=== PATIENT | female | born 1930 | race Caucasian/White ===

== ENCOUNTER 2018-04-25 02:57 | Inpatient (IN) ==
[2018-04-25 03:34] LABS: ABG Base Excess -4.1 mmol/L (-2-2); ABG PCO2 34 mmHg (38-42); ABG PO2 71 mmHg (61-120)
[2018-04-25 04:10] LABS: Baso # (Auto) 0.1 th/mm3 (0.0-0.2); Baso % (Auto) 0.6 % (0.0-2.0); Eos # (Auto) 0.4 th/mm3 (0.0-0.4); Eos % (Auto) 4.2 % (0.0-4.0); Hematocrit 39.4 % (35.0-46.0); Hemoglobin 13.1 gm/dL (11.6-15.3); Lymph # (Auto) 1.5 th/mm3 (1.0-4.8); Lymph % (Auto) 14.5 % (9.0-44.0); Mean Corpuscular HGB Conc 33.2 % (32.0-36.0); Mean Corpuscular Hemoglobin 31.8 pg (27.0-34.0); Mean Corpuscular Volume 95.8 fL (80.0-100.0); Mean Platelet Volume 8.3 fL (7.0-11.0); Mono # (Auto) 0.7 th/mm3 (0.0-0.9); Mono % (Auto) 6.9 % (0.0-8.0); Neut # (Auto) 7.5 th/mm3 (1.8-7.7); Neut % (Auto) 73.8 % (16.0-70.0); Platelet Count 234 th/mm3 (150-450); Red Blood Count 4.11 mil/mm3 (4.00-5.30); Red Cell Distribution Width 13.8 % (11.6-17.2); White Blood Count 10.2 th/mm3 (4.0-11.0)
[2018-04-25 04:16] LABS: Activated Partial Thrombo Time 23.1 sec (24.3-30.1); Prothrombin Time 10.1 sec (9.8-11.6)
[2018-04-25 04:27] LABS: Alanine Aminotransferase 45 U/L (10-53); Albumin 3.2 g/dL (3.4-5.0); Anion Gap 10 meq/L (5-15); Aspartate Aminotransferase 59 U/L (15-37); Blood Urea Nitrogen 18 mg/dL (7-18); Calcium 8.2 mg/dL (8.5-10.1); Carbon Dioxide 21.6 meq/L (21.0-32.0); Chloride 111 meq/L (98-107); Glomerular Filtration Rate 57 mL/min (>89); Glucose,Random 184 mg/dL (74-106); Potassium 3.7 meq/L (3.5-5.1); Sodium 143 meq/L (136-145)
[2018-04-25 04:31] LABS: Alkaline Phosphatase 112 U/L (45-117); Total Protein 7.1 g/dL (6.4-8.2); Troponin I 0.06 ng/mL (0.02-0.05)
[2018-04-25] MEDS ORDERED: Bisacodyl 10 MG Supp RECTAL PRN (05:08)
[2018-04-25] MEDS ORDERED: Acetaminophen 325 MG Tablet PO PRN (05:08)
[2018-04-25] MEDS ORDERED: Morphine Inj 4 MG/ML Vial IV.PUSH PRN (05:09)
--- NOTE | 2018-04-25 05:18 | XR ---
EXAM DATE: 04/25/2018 4:55 AM EDT AGE/SEX: 87 years / Female INDICATIONS: Shortness of breath. CLINICAL DATA: This is the patient's initial encounter. Patient reports that signs and symptoms have been present for 1 day and indicates a pain score of 0/10. MEDICAL/SURGICAL HISTORY: None. CABG. COMPARISON: POI, XR CHEST PA AND LAT, 11/16/2015. . FINDINGS: The heart size is normal. There is mild increased density at the bases. There is also some focal dens ity at the superior lateral right upper lung. No effusion is seen. There is an anterior cervical fusi on plate present. CONCLUSION: Mild bibasilar and lateral right upper lung areas of consolidation or atelectasis. Electronically signed by: Federico Watson MD 04/25/2018 5:17 AM EDT
--- NOTE | 2018-04-25 05:20 | ED ---
HPI General Chief Complaint: Respiratory Symptoms Stated Complaint: SOB/Evac Time Seen by Provider: 04/25/18 03:11 Source: patient Mode of arrival: EMS Limitations: no limitations History of Present Illness The patient is an 87-year-old female with past medical history significant for hypertension, diabetes and hyperlipidemia presenting with complaint of sudden onset of shortness of breath and chest tightness 2 hours ago. Patient was asleep and woke up with the aforementioned symptoms. On arrival her blood pressure was 231/97 with a heart rate in the 120s and O2 saturation of 92%. She is not a smoker she denies any chest pain no nausea vomiting or diarrhea no diaphoresis. MD Complaint: shortness of breath Severity: severe Relieving factors: nothing Known history of: diabetes Associated symptoms: denies other symptoms Treatment prior to arrival: none Related Data Home oxygen amount: none Allergies Allergy/AdvReac Type Severity Reaction Status Date / Time penicillin G Allergy Severe Confusion Verified 04/25/18 03:40 Review of Systems ROS: all other systems reviewed are negative Cardiovascular Denies chest pain, Denies chest pain at rest, Reports rapid heart rate, Reports leg edema, Reports palpitations, Reports dyspnea and Reports dyspnea on exertion PMFSH History History Provided By: Patient, 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 Medical History Medical History HTN (hypertension) (Acute) Type 2 diabetes mellitus (Acute) Surgical History Surgical History Hx of cholecystectomy (Acute) Social History Social History Substance History: No History of Abuse Second Hand Smoke Exposure: No Smoking Status: Never smoker How Often Do You Have a Drink Containing Alcohol: Never Recent Travel in [facility] within the Last 8 Weeks: No Recent Out of Country Travel within the Last 8 Weeks: No Exam Narrative Exam Narrative: GENERAL: Alert in moderate distress hyperventilating SKIN: Focused skin assessment warm/dry. HEAD: Atraumatic. Normocephalic. EYES: Pupils equal and round. No scleral icterus. No injection or drainage. ENT: No nasal bleeding or discharge. Mucous membranes pink and moist. NECK: Trachea midline. No JVD. CARDIOVASCULAR: Rapid rate with regular rhythm. No murmur appreciated. RESPIRATORY: Tachypneic with no accessory muscle use. Clear to auscultation. Breath sounds equal bilaterally. GASTROINTESTINAL: Abdomen soft, non-tender, nondistended. Hepatic and splenic margins not palpable. MUSCULOSKELETAL: No obvious deformities. No clubbing. No cyanosis. No edema. NEUROLOGICAL: Awake and alert. No obvious cranial nerve deficits. Motor grossly within normal limits. Normal speech. PSYCHIATRIC: Appropriate mood and affect; insight and judgment normal. Course Initial Documented Vital Signs Temperature 98.6 F 04/25/18 03:00 Respiratory Rate 20 04/25/18 03:00 Blood Pressure 231/97 H 04/25/18 03:00 Pulse Oximetry 91 L 04/25/18 03:00 Last Documented Vital Signs Temperature 98.6 F 04/25/18 03:00 Pulse Rate 102 H 04/25/18 04:40 Respiratory Rate 20 04/25/18 04:40 Blood Pressure 170/79 H 04/25/18 04:40 Pulse Oximetry 94 L 04/25/18 04:40 Critical Care Time Critical Care Time: Yes Total Critical Care Time: 30 Attestation: Aggregate critical care time was 30 minutes. Time to perform other separately billable procedures was not included in the critical care time. My time did not include minutes spent treating any other patients simultaneously or on activities that did not directly contribute to the patient's treatment. The services I provided to this patient were to treat and/or prevent clinically significant deterioration that could result in: Respiratory failure cardiac failure permanent disability and/or I provided critical care services requiring my management, as noted below: Chart data review, documentation time, medication orders and management, vital sign assessments/reviewing monitor data, ordering and reviewing lab tests, ordering and interpreting/reviewing x-rays and diagnostic studies, care of the patient and discussion of the patient with the admitting physicians. Medical Decision Making MDM Narrative Medical decision making narrative: Patient with left bundle branch block on EKG and no ST elevation [place] findings. Previous EKG that was found was from 2008 and is too long ago to compare however at that time the patient did not have a left bundle branch block. She denied any chest pain. Her troponin is 0.06 Also chest x-ray with equivocal findings for infiltrate no white count or fever however we will start on Levaquin. Medical Screen Exam Complete: Yes Emergency Medical Condition: Yes Lab Data Result diagrams: 04/25/18 03:45 08/18/18 03:45 Lab Results 04/25/18 04/25/18 04/25/18 Range/Units 03:21 03:45 03:45 WBC 10.2 (4.0-11.0) th/mm3 RBC 4.11 (4.00-5.30) mil/mm3 Hgb 13.1 (11.6-15.3) gm/dL Hct 39.4 (35.0-46.0) % MCV 95.8 (80.0-100.0) fL MCH 31.8 (27.0-34.0) pg MCHC 33.2 (32.0-36.0) % RDW 13.8 (11.6-17.2) % Plt Count 234 (150-450) th/mm3 MPV 8.3 (7.0-11.0) fL Neut % (Auto) 73.8 H (16.0-70.0) % Lymph % (Auto) 14.5 (9.0-44.0) % [place] % (Auto) 6.9 (0.0-8.0) % Eos % (Auto) 4.2 H (0.0-4.0) % Baso % (Auto) 0.6 (0.0-2.0) % Neut # (Auto) 7.5 (1.8-7.7) th/mm3 Lymph # (Auto) 1.5 (1.0-4.8) th/mm3 [place] # (Auto) 0.7 (0.0-0.9) th/mm3 Eos # (Auto) 0.4 (0.0-0.4) th/mm3 Baso # (Auto) 0.1 (0.0-0.2) th/mm3 WBC Differential . Differential Comment Auto diff final PT 10.1 (9.8-11.6) sec INR 1.0 Ratio APTT 23.1 L (24.3-30.1) sec Puncture Site Right radial Patient Temperature 98.6 O2 Saturation 93 (90-100) % ABG pH 7.39 (7.380-7.420) ABG pCO2 34 L (38-42) mmHg ABG pO2 71 (61-120) mmHg ABG HCO3 20 L (22-26) mmol/L ABG O2 Content 16.7 (12.0-20.0) Vol % ABG Base Excess -4.1 L (-2-2) mmol/L ABG Methemoglobin 0.7 (0-2) % Brant Test Present Hemoglobin 12.8 (12.0-16.0) G/DL Carboxyhemoglobin 1.3 (0-4) % O2 Delivery Device Nasal cannula Liter Flow 3.00 L/M Critical Value No Sodium (136-145) meq/L Potassium (3.5-5.1) meq/L Chloride (98-107) meq/L Carbon Dioxide (21.0-32.0) meq/L Anion Gap (5-15) meq/L BUN (7-18) mg/dL Creatinine (0.50-1.00) mg/dL Estimated GFR (>89) mL/min Random Glucose (74-106) mg/dL Calcium (8.5-10.1) mg/dL Total Bilirubin (0.2-1.0) mg/dL AST (15-37) U/L ALT (10-53) U/L Alkaline Phosphatase (45-117) U/L Troponin I (0.02-0.05) ng/mL B-Natriuretic Peptide (0-100) pg/mL Total Protein (6.4-8.2) g/dL Albumin (3.4-5.0) g/dL 04/25/18 04/25/18 Range/Units 03:45 03:45 WBC (4.0-11.0) th/mm3 RBC (4.00-5.30) mil/mm3 Hgb (11.6-15.3) gm/dL Hct (35.0-46.0) % MCV (80.0-100.0) fL MCH (27.0-34.0) pg MCHC (32.0-36.0) % RDW (11.6-17.2) % Plt Count (150-450) th/mm3 MPV (7.0-11.0) fL Neut % (Auto) (16.0-70.0) % Lymph % (Auto) (9.0-44.0) % [place] % (Auto) (0.0-8.0) % Eos % (Auto) (0.0-4.0) % Baso % (Auto) (0.0-2.0) % Neut # (Auto) (1.8-7.7) th/mm3 Lymph # (Auto) (1.0-4.8) th/mm3 [place] # (Auto) (0.0-0.9) th/mm3 Eos # (Auto) (0.0-0.4) th/mm3 Baso # (Auto) (0.0-0.2) th/mm3 WBC Differential Differential Comment PT (9.8-11.6) sec INR Ratio APTT (24.3-30.1) sec Puncture Site Patient Temperature O2 Saturation (90-100) % ABG pH (7.380-7.420) ABG pCO2 (38-42) mmHg ABG pO2 (61-120) mmHg ABG HCO3 (22-26) mmol/L ABG O2 Content (12.0-20.0) Vol % ABG Base Excess (-2-2) mmol/L ABG Methemoglobin (0-2) % Brant Test Hemoglobin (12.0-16.0) G/DL Carboxyhemoglobin (0-4) % O2 Delivery Device Liter Flow L/M Critical Value Sodium 143 (136-145) meq/L Potassium 3.7 (3.5-5.1) meq/L Chloride 111 H (98-107) meq/L Carbon Dioxide 21.6 (21.0-32.0) meq/L Anion Gap 10 (5-15) meq/L BUN 18 (7-18) mg/dL Creatinine 0.93 (0.50-1.00) mg/dL Estimated GFR 57 L (>89) mL/min Random Glucose 184 H (74-106) mg/dL Calcium 8.2 L (8.5-10.1) mg/dL Total Bilirubin 0.6 (0.2-1.0) mg/dL AST 59 H (15-37) U/L ALT 45 (10-53) U/L Alkaline Phosphatase 112 (45-117) U/L Troponin I 0.06 H (0.02-0.05) ng/mL B-Natriuretic Peptide 329 H (0-100) pg/mL Total Protein 7.1 (6.4-8.2) g/dL Albumin 3.2 L (3.4-5.0) g/dL Imaging Data Radiologist's impression: Chest X-Ray 04/25/18 03:17 CONCLUSION: Mild bibasilar and lateral right upper lung areas of consolidation or atelectasis. Discharge Plan Discharge Disposition Patient Disposition: 30 Still Patient Discharge Condition Condition: Good Discharge Details Diagnosis: Acute non-ST elevation myocardial infarction (NSTEMI), Pneumonia, Accelerated hypertension, CHF (congestive heart failure) Physicians Team ED Provider: Joshua Fonseca Primary Care Provider: UNKNOWN, Attending Provider: Jacqueline Fleming Other Providers: Damion Myers Discharge Interventions Interventions: Vital Signs Last Done: 04/25/18 04:40 Status ED Status: Admitted Patient
[2018-04-25] MEDS: Heparin Drip 25,000 UNIT/250 ML BAG IV.CONT PRN (05:41)
[2018-04-25] MEDS ORDERED: Metoprolol Tartrate 25 MG Tablet PO SCH (09:00)
[2018-04-25] MEDS: Senna/Docusate Sodium 8.6/50 MG Tablet PO SCH ×3 (10:56→21:31)
[2018-04-25 12:47] LABS: Hematocrit 37.4 % (35.0-46.0); Hemoglobin 12.5 gm/dL (11.6-15.3); Mean Corpuscular HGB Conc 33.5 % (32.0-36.0); Mean Corpuscular Hemoglobin 31.8 pg (27.0-34.0); Mean Corpuscular Volume 95.1 fL (80.0-100.0); Mean Platelet Volume 8.7 fL (7.0-11.0); Platelet Count 212 th/mm3 (150-450); Red Blood Count 3.93 mil/mm3 (4.00-5.30); Red Cell Distribution Width 13.9 % (11.6-17.2); White Blood Count 7.7 th/mm3 (4.0-11.0)
[2018-04-25] MEDS ORDERED: Metoprolol Inj 5 MG/5 ML Vial IV.PUSH PRN ×3 (13:47→18:10)
--- NOTE | 2018-04-25 13:57 | P.HP ---
History of Present Illness Primary Care Physician: UNKNOWN Chief Complaint: Chest pain History of Present Illness: 87-year-old female for past medical history of hypertension and a previous negative nuclear stress test October 17, 2006 was brought to the ED by EMS early this morning for evaluation of ongoing chest discomfort and pain associated with shortness of breath without any radiation described as crushing , substernal without any diaphoresis. Initial cardiac enzyme 0.06, with elevated BP on arrival. Patient states, the pain woke her up around 1:30 AM this morning. It was rated over 16 in intensity without any relieving factor. Inpatient Certification: I certify that the inpatient services were ordered in accordance with Medicare regulations governing the order. 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 - Medical History Medical History: Medical History (Last Reviewed 04/25/18 @ 05:17 by Joshua Fonseca DO) HTN (hypertension) Type 2 diabetes mellitus - Surgical History Surgical History: Surgical History (Last Reviewed 04/25/18 @ 05:17 by Joshua Fonseca DO) Hx of cholecystectomy - Family History Family History: Family History (Last Updated 04/25/18 @ 13:51 by Ab Rod MD) Other Family history of heart disease - Tobacco History Second Hand Smoke Exposure: No Smoking Status: Never smoker - Alcohol History How Often Do You Have a Drink Containing Alcohol: Never - Substance Use History Substance History: No History of Abuse - Travel History Recent Travel in the [place] Within the Last 8 Weeks: No Recent Travel Out of the Country Within the Last 8 Weeks: No - Immunization History Tetanus Immunization: Unsure Hx Influenza Vaccine This Season: Yes Medications and Allergies Active Medications: Active Medications Acetaminophen (Tylenol) 650 mg PO Q4H PRN PRN Reason: Temp > 100.4 Al Hydroxide/Mg Hydroxide (Milk Of Magnesia Liq) 30 ml PO Q12H PRN PRN Reason: Mild Constipation Aspirin (Ecotrin) 81 mg PO DAILY FOR[facility]LY [facility], [facility]1983 Last Admin: 04/25/18 10:48 Dose: Not Given Bisacodyl (Dulcolax Supp) 10 mg RECTAL DAILY PRN PRN Reason: SEVERE CONSITIPATION Heparin Sodium/Dextrose (Heparin/D5w 25,000 U/250 Ml) 25,000 unit in 250 mls @ 0 mls/hr IV.CONT TITRATE PRN; Protocol PRN Reason: Per Protocol Last Admin: 04/25/18 05:41 Dose: 1,000 units/hr, 10 mls/hr Levofloxacin/Dextrose (Levaquin 750 Mg Premix Inj) 150 mls @ 100 mls/hr IV.SIG Q24H FOR[facility], [facility]1983 Lactulose (Lactulose Liq) 30 ml PO DAILY PRN PRN Reason: SEVERE CONSITIPATION Metoprolol Tartrate (Lopressor) 25 mg PO BID [facility]LY [facility], [facility] Last Admin: 04/25/18 10:56 Dose: 25 mg Metoprolol Tartrate (Lopressor Inj) 2.5 mg IV.PUSH Q6H PRN PRN Reason: SBP>160, DBP>90 Morphine Sulfate (Morphine Inj) 2 mg IV.PUSH Q4H PRN PRN Reason: PAIN 6-10 Nitroglycerin (Nitrostat Sl) 0.4 mg SL Q5M PRN PRN Reason: HYPERTENSION Last Admin: 04/25/18 04:16 Dose: 0.4 mg Nitroglycerin (Nitro-Bid 2% Oint) 0.5 inch TOPICAL Q6HR PRN PRN Reason: CHEST PAIN Ondansetron HCl (Zofran Inj) 4 mg IV.PUSH Q6H PRN PRN Reason: NAUSEA OR VOMITING Pravastatin Sodium (Pravachol) 40 mg PO DAILY [facility] Last Admin: 04/25/18 10:56 Dose: 40 mg Senna/Docusate Sodium (Lauren-Colace) 1 tab PO BID [facility] Last Admin: 04/25/18 10:58 Dose: Not Given Sennosides (Senokot) 17.2 mg PO Q12H PRN PRN Reason: Moderate Constipation Allergies Allergy/AdvReac Type Severity Reaction Status Date / Time penicillin G Allergy Severe Confusion Verified 04/25/18 03:40 Home Medications Medication Instructions Recorded Confirmed Type Unable to Obtain Home Meds 04/25/18 04/25/18 History Exam Vital signs: Vital Signs 04/25/18 03:00 04/25/18 03:36 04/25/18 03:40 Temperature 98.6 F Pulse Rate Respiratory Rate 20 22 Blood Pressure 231/97 H Pulse Oximetry 91 L 94 L 94 L 04/25/18 04:11 04/25/18 04:40 04/25/18 07:19 Temperature Pulse Rate 89 102 H 73 Respiratory Rate 24 20 26 H Blood Pressure 231/99 H 170/79 H 148/67 H Pulse Oximetry 94 L 94 L 97 04/25/18 10:56 Temperature Pulse Rate 73 Respiratory Rate 25 H Blood Pressure 194/86 H Pulse Oximetry 97 Intake & Output 04/24/18 04/25/18 04/25/18 18:59 06:59 18:59 Weight 81.647 kg Other: # Voids 1 Narrative: GENERAL: NAD SKIN: Warm and dry. HEAD: Normocephalic. EYES: No scleral icterus. No injection or drainage. NECK: Supple, trachea midline. No JVD or lymphadenopathy. CARDIOVASCULAR: Regular rate and rhythm without murmurs, gallops, or rubs. RESPIRATORY: Breath sounds equal bilaterally. No accessory muscle use. GASTROINTESTINAL: Abdomen soft, non-tender, nondistended. MUSCULOSKELETAL: No cyanosis, or edema. BACK: Nontender without obvious deformity. No CVA tenderness. Results - Labs CBC & Chem 7: 04/25/18 11:39 04/25/18 03:45 Labs: Laboratory Results - last 24 hr 04/25/18 04/25/18 04/25/18 03:21 03:45 03:45 WBC 10.2 RBC 4.11 Hgb 13.1 Hct 39.4 MCV 95.8 MCH 31.8 MCHC 33.2 RDW 13.8 Plt Count 234 MPV 8.3 Neut % (Auto) 73.8 H Lymph % (Auto) 14.5 [place] % (Auto) 6.9 Eos % (Auto) 4.2 H Baso % (Auto) 0.6 Neut # (Auto) 7.5 Lymph # (Auto) 1.5 [place] # (Auto) 0.7 Eos # (Auto) 0.4 Baso # (Auto) 0.1 WBC Differential . Differential Comment Auto diff final PT 10.1 INR 1.0 APTT 23.1 L Puncture Site Right radial Patient Temperature 98.6 O2 Saturation 93 ABG pH 7.39 ABG pCO2 34 L ABG pO2 71 ABG HCO3 20 L ABG O2 Content 16.7 ABG Base Excess -4.1 L ABG Methemoglobin 0.7 Brant Test Present Hemoglobin 12.8 Carboxyhemoglobin 1.3 O2 Delivery Device Nasal cannula Liter Flow 3.00 Critical Value No Sodium Potassium Chloride Carbon Dioxide Anion Gap BUN Creatinine Estimated GFR Random Glucose Calcium Total Bilirubin AST ALT Alkaline Phosphatase Troponin I B-Natriuretic Peptide Total Protein Albumin 04/25/18 04/25/18 04/25/18 03:45 03:45 11:39 WBC 7.7 RBC 3.93 L Hgb 12.5 Hct 37.4 MCV 95.1 MCH 31.8 MCHC 33.5 RDW 13.9 Plt Count 212 MPV 8.7 Neut % (Auto) Lymph % (Auto) [place] % (Auto) Eos % (Auto) Baso % (Auto) Neut # (Auto) Lymph # (Auto) [place] # (Auto) Eos # (Auto) Baso # (Auto) WBC Differential Differential Comment PT INR APTT Puncture Site Patient Temperature O2 Saturation ABG pH ABG pCO2 ABG pO2 ABG HCO3 ABG O2 Content ABG Base Excess ABG Methemoglobin Brant Test Hemoglobin Carboxyhemoglobin O2 Delivery Device Liter Flow Critical Value Sodium 143 Potassium 3.7 Chloride 111 H Carbon Dioxide 21.6 Anion Gap 10 BUN 18 Creatinine 0.93 Estimated GFR 57 L Random Glucose 184 H Calcium 8.2 L Total Bilirubin 0.6 AST 59 H ALT 45 Alkaline Phosphatase 112 Troponin I 0.06 H B-Natriuretic Peptide 329 H Total Protein 7.1 Albumin 3.2 L 04/25/18 04/25/18 11:39 11:39 WBC RBC Hgb Hct MCV MCH MCHC RDW Plt Count MPV Neut % (Auto) Lymph % (Auto) [place] % (Auto) Eos % (Auto) Baso % (Auto) Neut # (Auto) Lymph # (Auto) [place] # (Auto) Eos # (Auto) Baso # (Auto) WBC Differential Differential Comment PT INR APTT 46.1 H D Puncture Site Patient Temperature O2 Saturation ABG pH ABG pCO2 ABG pO2 ABG HCO3 ABG O2 Content ABG Base Excess ABG Methemoglobin Brant Test Hemoglobin Carboxyhemoglobin O2 Delivery Device Liter Flow Critical Value Sodium Potassium Chloride Carbon Dioxide Anion Gap BUN Creatinine Estimated GFR Random Glucose Calcium Total Bilirubin AST ALT Alkaline Phosphatase Troponin I 0.17 H D B-Natriuretic Peptide Total Protein Albumin - Imaging Impressions Chest X-Ray 04/25/18 03:17 CONCLUSION: Mild bibasilar and lateral right upper lung areas of consolidation or atelectasis. Caprini VTE Risk Assessment Caprini VTE Risk Assessment: Moderate/High Risk (score >= 2) Caprini Risk Assessment Model: Point Value = 1 Point Value = 2 Point Value = 3 Point Value = 5 Age 41-60 Minor surgery BMI > 25 kg/m2 Swollen legs Varicose veins or History of unexplained or recurrent spontaneous Oral contraceptives or hormone replacement Sepsis (< 1 month) Serious lung disease, including pneumonia (< 1 month) Abnormal pulmonary function Acute myocardial infarction Congestive heart failure (< 1 month) History of inflammatory bowel disease Medical patient at bed rest Age 61-74 Arthroscopic surgery Major open surgery (> 45 min) Laparoscopic surgery (> 45 min) Malignancy Confined to bed (> 72 hours) Immobilizing plaster cast Central venous access Age >= 75 History of VTE Family history of VTE Factor V Leiden Prothrombin [id number] Lupus anticoagulant Anticardiolipin antibodies Elevated serum homocysteine Heparin-induced thrombocytopenia Other congenital or acquired thrombophilia Stroke (< 1 month) Elective arthroplasty Hip, pelvis, or leg fracture Acute spinal cord injury (< 1 month) Prophylaxis Regimen: Total Risk Factor Score Risk Level Prophylaxis Regimen 0-1 Low Early ambulation 2 Moderate Order ONE of the following: *Sequential Compression Device (SCD) *Heparin 5000 units SQ BID 3-4 Higher Order ONE of the following medications: *Heparin 5000 units SQ TID *Enoxaparin/Lovenox 40 mg SQ daily (WT < 150 kg, CrCl > 30 mL/min) *Enoxaparin/Lovenox 30 mg SQ daily (WT < 150 kg, CrCl > 10-29 mL/min) *Enoxaparin/Lovenox 30 mg SQ BID (WT < 150 kg, CrCl > 30 mL/min) AND/OR *Sequential Compression Device (SCD) 5 or more Highest Order ONE of the following medications: *Heparin 5000 units SQ TID (Preferred with Epidurals) *Enoxaparin/Lovenox 40 mg SQ daily (WT < 150 kg, CrCl > 30 mL/min) *Enoxaparin/Lovenox 30 mg SQ daily (WT < 150 kg, CrCl > 10-29 mL/min) *Enoxaparin/Lovenox 30 mg SQ BID (WT < 150 kg, CrCl > 30 mL/min) AND *Sequential Compression Device (SCD) Assessment and Plan - Plan 87-year-old female with Non-ST elevation [place] Currently on heparin drip, start nitro drip Continue ACS rule out per protocol otherwise Cardiology consultation for evaluation for left heart catheterization Continue aspirin, beta-marlee, Nitropaste, statin Check 2D echo, lipid profile Diabetes type 2 Hold oral hypoglycemic agent Start insulin sliding scale with fingerstick blood glucose monitoring Hypertension Currently on beta-marlee ,however will start nitroglycerin drip 2D echo pending Abnormal chest x-ray, questionable pulmonary infiltrate Chest x-ray noted and reviewed by me with finding of Mild bibasilar and lateral right upper lung areas of consolidation or atelectasis Continue with empiric antibiotics however if patient remained afebrile with no leukocytosis, okay to discontinue antibiotic tomorrow
[2018-04-25] MEDS ORDERED: Dextrose 50% in Water 50 ML Vial IV.PUSH PRN (14:05)
--- NOTE | 2018-04-25 17:04 | MB ---
cc: Damion Myers DO DATE: 04/25/2018 IMPRESSIONS: 1. Shortness of breath, multifactorial. There may be a component of mild left heart failure. The patient has possible early right-sided infiltrates/atelectasis. 2. Elevated troponins. The patient did have chest discomfort on admission in addition to shortness of breath and may have a [id number] myocardial infarction. Her current electrocardiogram is changed from one in 2015. 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 3. Hypertension. 4. Diabetes. She tells me she has diabetic neuropathy because she has cold feet. 5. Advanced age. 6. Cervical radiculopathy. RECOMMENDATIONS: 1. Judicious low dose diuretic. 2. Antiplatelet therapy. 3. The patient has been started on a heparin drip. 4. I would continue IV antibiotics. 5. We will start the patient on beta marlee. 6. Check echocardiogram. 7. Pending the patient's left ventricular function, she may benefit from vasodilator therapy. She currently is not in decompensated left heart failure. CLINICAL DATA: Mrs. Estrada is a pleasant 87-year-old female admitted to the hospital with shortness of breath and chest discomfort. Her main complaint has to do with shortness of breath, although the emergency room narrative describes crushing chest pain. She has had no recent fever. She has had no chills. She has had a nonproductive cough. She has no previous history of atherosclerotic heart disease, peripheral vascular disease, myocardial infarction, congestive heart failure or cardiac arrhythmias. She has no history of pericardial heart disease. She denies any history of seizure, stroke, TIA or migraine headache. There is no history of lung disease, asthma, bronchitis, or emphysema. She has had pneumonia in the past. There is no history of GI bleeding or reflux. No history of liver disease. There is no history of kidney or thyroid disease. No history of DVT or pulmonary thromboembolic disease. She has never smoked. There is no family history of precocious coronary artery disease. She does not use alcohol. ALLERGIES: PENICILLIN, WHICH SHE STATES CAUSES HER TO DEVELOP A YEAST INFECTION. PAST SURGICAL HISTORY: Includes cervical laminectomy and cholecystectomy. REVIEW OF SYSTEMS: She has had no transient neurological deficits or amaurosis fugax. She has had no lower extremity edema or weight gain. She has had no back pain or abdominal pain and again no fever or chills. PHYSICAL EXAMINATION: GENERAL: At this time, demonstrates an alert and oriented female who has some mild conversational dyspnea. VITAL SIGNS: She appears to be in a sinus rhythm, but the heart rate is over 100. She is afebrile. Last blood pressure recorded is 194/86. Her respiratory rate is increased at approximately 25-30. HEENT: Anicteric sclerae. NECK: Jugular venous pressures are not elevated. There are no bruits. CHEST: She has diminished breath sounds in the bases, but no obvious rales. CARDIAC: Demonstrates tachycardia, regular rate and rhythm. There is no definite gallops noted. There is a 1/6 systolic ejection murmur. Her precordium is hyperdynamic as the carotid upstrokes are brisk. ABDOMEN: Soft, nontender. EXTREMITIES: Free of cyanosis, clubbing, edema. DIAGNOSTIC STUDIES: Chest x-ray demonstrates possible right middle lobe infiltrate with stranding/atelectasis. A 12-lead electrocardiogram: Complete left bundle branch block. PERTINENT LABORATORY STUDIES: On admission, she had a widened A-a gradient with hypercapnia. White cell count was 7700. There was a left shift on a subsequent differential. The hematocrit was 37%, the platelet count is 212. Admitting electrolytes: 143/3.7/111/22 with a BUN of 18, creatinine 0.93, GFR of 57. Troponin is elevated at 0.06 and have risen to 0.17. BNP 329. DISCUSSION: This is an elderly female with no previous history of atherosclerotic heart disease, admitted to the hospital with shortness of breath, possible early community-acquired pneumonia and enzymatic evidence of possible myocardial ischemia with complete left bundle branch block noted on her EKG. Recommendations are as noted above. DO DAWOOD Prieto/toribio , 03:21 PM , 03:31 PM
[2018-04-25] MEDS: Insulin NovoLOG Aspart Correctional Sugar Inj SQ SCH ×2 (18:22→21:27)
[2018-04-25 18:51] LABS: Troponin I 0.17 ng/mL (0.02-0.05)
--- NOTE | 2018-04-25 19:21 | ECG ---
Date Performed: 04/25/2018 Time Performed: 03:06:40 PTAGE: 87 years EKG: ATRIAL FLUTTER WITH 3:1 AV CONDUCTION LEFT BUNDLE BRANCH BLOCK ST-T CHANGES, WHICH MAY BE D UE TO THE BUNDLE BRANCH BLOCK. SINCE PREVIOUS TRACING 01/09/2009, THERE IS A RHYTHM CHANGE FROM Sinus r hythm WITH BORDERLINE FIRST DEGREE AV BLOCK. Clinical correlation is recommended ABNORMAL ECG PREVIOUS TRACING : 01/09/2009 11.53 DOCTOR: Anton Montgomery Interpretating Date/Time 04/25/2018 19:20:19
[2018-04-25] MEDS: Lisinopril 5 MG Tablet PO SCH (21:31)
[2018-04-25] MEDS: Metoprolol Tartrate 25 MG Tablet PO SCH (21:31)
[2018-04-26 00:30] LABS: Troponin I 0.17 ng/mL (0.02-0.05)
[2018-04-26] MEDS: Heparin Drip 25,000 UNIT/250 ML BAG IV.CONT PRN (07:03)
[2018-04-26 08:04] LABS: Baso % (Auto) 0.4 % (0.0-2.0); Eos # (Auto) 0.4 th/mm3 (0.0-0.4); Eos % (Auto) 4.6 % (0.0-4.0); Hematocrit 37.3 % (35.0-46.0); Hemoglobin 12.4 gm/dL (11.6-15.3); Lymph # (Auto) 1.8 th/mm3 (1.0-4.8); Lymph % (Auto) 22.6 % (9.0-44.0); Mean Corpuscular HGB Conc 33.2 % (32.0-36.0); Mean Corpuscular Hemoglobin 31.8 pg (27.0-34.0); Mean Corpuscular Volume 95.7 fL (80.0-100.0); Mean Platelet Volume 9.2 fL (7.0-11.0); Mono # (Auto) 0.8 th/mm3 (0.0-0.9); Mono % (Auto) 10.6 % (0.0-8.0); Neut # (Auto) 4.8 th/mm3 (1.8-7.7); Neut % (Auto) 61.8 % (16.0-70.0); Platelet Count 220 th/mm3 (150-450); Red Cell Distribution Width 13.8 % (11.6-17.2); White Blood Count 7.8 th/mm3 (4.0-11.0)
[2018-04-26 08:21] LABS: Anion Gap 11 meq/L (5-15); Aspartate Aminotransferase 31 U/L (15-37); Blood Urea Nitrogen 16 mg/dL (7-18); Calcium 8.3 mg/dL (8.5-10.1); Carbon Dioxide 25.2 meq/L (21.0-32.0); Chloride 104 meq/L (98-107); Glomerular Filtration Rate 62 mL/min (>89); Glucose,Random 169 mg/dL (74-106); Potassium 3.4 meq/L (3.5-5.1); Sodium 140 meq/L (136-145)
[2018-04-26 08:22] LABS: Alanine Aminotransferase 34 U/L (10-53); Cholesterol 138 mg/dL (120-200); Triglycerides 169 mg/dL (42-150)
[2018-04-26 08:26] LABS: Alkaline Phosphatase 116 U/L (45-117); Chol/HDL Ratio 2.61 Ratio; HDL Cholesterol 52.8 mg/dL (40.0-60.0); LDL Cholesterol,Calculated 51 mg/dL (0-99); Total Protein 6.5 g/dL (6.4-8.2); Troponin I 0.13 ng/mL (0.02-0.05)
[2018-04-26 08:41] LABS: Creatine Kinase 56 U/L (26-192)
[2018-04-26] MEDS: Insulin NovoLOG Aspart Correctional Sugar Inj SQ SCH ×4 (09:16→20:50)
[2018-04-26] MEDS: Senna/Docusate Sodium 8.6/50 MG Tablet PO SCH ×2 (09:16→20:50)
[2018-04-26] MEDS: Metoprolol Tartrate 25 MG Tablet PO SCH ×2 (09:16→20:50)
[2018-04-26] MEDS: Lisinopril 5 MG Tablet PO SCH ×2 (09:16→20:50)
--- NOTE | 2018-04-26 11:39 | P.PN ---
Subjective Interval history: Follow-up non-ST elevation [place] April 26, 2018-patient seen and examined, denies any chest discomfort and currently afebrile. Reports some improvements since admission. Physical Exam Vital signs: Vital Signs 04/25/18 16:00 04/25/18 17:08 04/25/18 20:00 Temperature 97.3 F L 98.2 F Pulse Rate 109 H 87 82 Respiratory Rate 20 18 Blood Pressure 189/100 H 150/72 H Pulse Oximetry 94 L 96 04/26/18 00:00 04/26/18 04:00 04/26/18 08:00 Temperature 98.1 F 98.8 F 97.9 F Pulse Rate 62 61 68 Respiratory Rate 18 18 18 Blood Pressure 115/65 136/67 170/78 H Pulse Oximetry 96 93 L 95 Intake & Output 04/25/18 04/26/18 04/26/18 18:59 06:59 18:59 Intake Total 390 / 390 970 / 970 150 / 150 Balance 390 / 390 970 / 970 150 / 150 Weight 75.6 kg 75.2 kg Intake: IV 150 / 150 250 / 250 150 / 150 Heparin/D5W 25,000 U/250 mL 25, 250 / 250 000 unit In 250 ml @ Per Protocol IV.CONT TITRATE PRN Rx #:[id number] Levaquin 750 mg Premix Inj 150 150 / 150 ML @ 100 mls/hr IV.SIG Q24H MARY Rx#:[id number] Oral 240 / 240 240 / 240 Tube Feeding 480 / 480 Other: # Voids 1 1 Date of Last Bowel Movement 04/24/18 Weight On Admission 75.6 kg Narrative: GENERAL: NAD SKIN: Warm and dry. HEAD: Normocephalic. EYES: No scleral icterus. No injection or drainage. NECK: Supple, trachea midline. No JVD or lymphadenopathy. CARDIOVASCULAR: Regular rate and rhythm without murmurs, gallops, or rubs. RESPIRATORY: Breath sounds equal bilaterally. No accessory muscle use. GASTROINTESTINAL: Abdomen soft, non-tender, nondistended. MUSCULOSKELETAL: No cyanosis, or edema. BACK: Nontender without obvious deformity. No CVA tenderness. Results - Labs CBC & Chem 7: 04/26/18 06:18 04/26/18 06:18 Laboratory Results - last 24 hr 04/25/18 04/25/18 04/25/18 11:39 11:39 11:39 WBC 7.7 RBC 3.93 L Hgb 12.5 Hct 37.4 MCV 95.1 MCH 31.8 MCHC 33.5 RDW 13.9 Plt Count 212 MPV 8.7 Neut % (Auto) Lymph % (Auto) Trimble % (Auto) Eos % (Auto) Baso % (Auto) Neut # (Auto) Lymph # (Auto) Trimble # (Auto) Eos # (Auto) Baso # (Auto) WBC Differential Differential Comment APTT 46.1 H D Sodium Potassium Chloride Carbon Dioxide Anion Gap BUN Creatinine Estimated GFR POC Glucose Random Glucose Calcium Total Bilirubin AST ALT Alkaline Phosphatase Total Creatine Kinase Troponin I 0.17 H D Total Protein Albumin Triglycerides Cholesterol LDL Cholesterol, Calc HDL Cholesterol Cholesterol/HDL Ratio 04/25/18 04/25/18 04/25/18 16:31 18:08 18:08 WBC RBC Hgb Hct MCV MCH MCHC RDW Plt Count MPV Neut % (Auto) Lymph % (Auto) [place] % (Auto) Eos % (Auto) Baso % (Auto) Neut # (Auto) Lymph # (Auto) Trimble # (Auto) Eos # (Auto) Baso # (Auto) WBC Differential Differential Comment APTT 54.9 H Sodium Potassium Chloride Carbon Dioxide Anion Gap BUN Creatinine Estimated GFR POC Glucose 205 H Random Glucose Calcium Total Bilirubin AST ALT Alkaline Phosphatase Total Creatine Kinase 67 Troponin I 0.17 H Total Protein Albumin Triglycerides Cholesterol LDL Cholesterol, Calc HDL Cholesterol Cholesterol/HDL Ratio 04/25/18 04/25/18 04/26/18 21:28 21:29 00:00 WBC RBC Hgb Hct MCV MCH MCHC RDW Plt Count MPV Neut % (Auto) Lymph % (Auto) Trimble % (Auto) Eos % (Auto) Baso % (Auto) Neut # (Auto) Lymph # (Auto) Trimble # (Auto) Eos # (Auto) Baso # (Auto) WBC Differential Differential Comment APTT Sodium Potassium Chloride Carbon Dioxide Anion Gap BUN Creatinine Estimated GFR POC Glucose 150 H 157 H Random Glucose Calcium Total Bilirubin AST ALT Alkaline Phosphatase Total Creatine Kinase 59 Troponin I 0.17 H Total Protein Albumin Triglycerides Cholesterol LDL Cholesterol, Calc HDL Cholesterol Cholesterol/HDL Ratio 04/26/18 04/26/18 04/26/18 06:18 06:18 06:18 WBC 7.8 RBC 3.90 L Hgb 12.4 Hct 37.3 MCV 95.7 MCH 31.8 MCHC 33.2 RDW 13.8 Plt Count 220 MPV 9.2 Neut % (Auto) 61.8 Lymph % (Auto) 22.6 Trimble % (Auto) 10.6 H Eos % (Auto) 4.6 H Baso % (Auto) 0.4 Neut # (Auto) 4.8 Lymph # (Auto) 1.8 Trimble # (Auto) 0.8 Eos # (Auto) 0.4 Baso # (Auto) 0.0 WBC Differential . Differential Comment Auto diff final APTT 53.3 H Sodium 140 Potassium 3.4 L Chloride 104 Carbon Dioxide 25.2 Anion Gap 11 BUN 16 Creatinine 0.87 Estimated GFR 62 L POC Glucose Random Glucose 169 H Calcium 8.3 L Total Bilirubin 0.8 AST 31 ALT 34 Alkaline Phosphatase 116 Total Creatine Kinase 56 Troponin I 0.13 H Total Protein 6.5 D Albumin 3.0 L Triglycerides 169 H Cholesterol 138 LDL Cholesterol, Calc 51 HDL Cholesterol 52.8 Cholesterol/HDL Ratio 2.61 04/26/18 07:15 WBC RBC Hgb Hct MCV MCH MCHC RDW Plt Count MPV Neut % (Auto) Lymph % (Auto) Trimble % (Auto) Eos % (Auto) Baso % (Auto) Neut # (Auto) Lymph # (Auto) Trimble # (Auto) Eos # (Auto) Baso # (Auto) WBC Differential Differential Comment APTT Sodium Potassium Chloride Carbon Dioxide Anion Gap BUN Creatinine Estimated GFR POC Glucose 198 H Random Glucose Calcium Total Bilirubin AST ALT Alkaline Phosphatase Total Creatine Kinase Troponin I Total Protein Albumin Triglycerides Cholesterol LDL Cholesterol, Calc HDL Cholesterol Cholesterol/HDL Ratio Microbiology 04/25/18 07:02 Blood - Peripheral Aerobic Blood Culture - Preliminary No growth in 1 day 04/25/18 07:02 Blood - Peripheral Anaerobic Blood Culture - Preliminary No growth in 1 day 04/25/18 06:55 Blood - Peripheral Aerobic Blood Culture - Preliminary No growth in 1 day 04/25/18 06:55 Blood - Peripheral Anaerobic Blood Culture - Preliminary No growth in 1 day Assessment and Plan - Plan 87-year-old female with Non-ST elevation [place] Currently on heparin drip Continue ACS rule out per protocol otherwise Appreciate input from cardiology Continue aspirin, beta-marlee, Nitropaste, statin 2D echo pending, lipid profile wnl She was started on low-dose Lasix per cardiology Diabetes type 2 Hold oral hypoglycemic agent Continue insulin sliding scale with fingerstick blood glucose monitoring Hypertension Currently on beta-marlee 2D echo pending Abnormal chest x-ray, questionable pulmonary infiltrate Chest x-ray noted and reviewed by me with finding of Mild bibasilar and lateral right upper lung areas of consolidation or atelectasis Continue with empiric antibiotics
--- NOTE | 2018-04-26 12:34 | ECHRPT ---
Indication: CHEST PAIN CONCLUSIONS Normal left ventricular size and wall thickness. The left ventricular systolic function is normal wi th an estimated ejection fraction in the range of 60-65%. Left ventricular diastolic function parameters a re normal. There is abnormal septal motion consistent with an intraventricular conduction delay. Mild thickening of the mitral valve leaflets [id number] mitral valve regurgitation. Aortic valve sclerosis is present. Mild aortic valve regurgitation. There is mild tricuspid valve regurgitation. The estimated pulmonary arterial pressure is 52 mmHg. Mild pulmonary valve regurgitation. A small left sided pleural effusion is noted. BP: / HR: Rhythm: Sinus MEASUREMENTS (Male / Female) Normal Values Technical Quality:Good 2D ECHO LV Diastolic Diameter PLAX 5.1 cm 4.2 - 5.9 / 3.9 - 5.3 cm LV Systolic Diameter PLAX 3.2 cm IVS Diastolic Thickness 1.1 cm 0.6 - 1.0 / 0.6 - 0.9 cm LVPW Diastolic Thickness 1.1 cm 0.6 - 1.0 / 0.6 - 0.9 cm LV Relative Wall Thickness 0.4 RV Internal Dim ED PLAX 2.0 cm LVOT Diameter 1.8 cm LA Systolic Diameter LX 3.7 cm 3.0 - 4.0 / 2.7 - 3.8 cm LV Ejection Fraction MOD 4C 65.2 % LV Ejection Fraction 4C AL 67.2 % M-MODE Aortic Root Diameter MM 2.6 cm LA Systolic Diameter MM 3.8 cm LA Ao Ratio MM 1.5 AV Cusp Separation MM 2.1 cm DOPPLER AV Peak Velocity 124.0 cm/s AV Peak Gradient 6.2 mmHg AI Peak Velocity 383.5 cm/s AI Peak Gradient 58.8 mmHg AI Pressure Half Time 567.5 ms LVOT Peak Velocity 89.3 cm/s LVOT Peak Gradient 3.2 mmHg AV Area Cont Eq pk 1.8 cm MV Area PHT 5.4 cm Mitral E Point Velocity 136.0 cm/s Mitral A Point Velocity 46.4 cm/s Mitral E to A Ratio 2.9 LV E' Lateral Velocity 5.6 cm/s Mitral E to LV E' Lateral Ratio 24.5 LV E' Septal Velocity 5.7 cm/s Mitral E to LV E' Septal Ratio 24.1 TR Peak Velocity 324.0 cm/s TR Peak Gradient 42.0 mmHg Right Atrial Pressure 10.0 mmHg Pulmonary Artery Systolic Pressu 52.0 mmHg Right Ventricular Systolic Press 52.0 mmHg PV Peak Velocity 93.7 cm/s PV Peak Gradient 3.5 mmHg FINDINGS LEFT VENTRICLE Normal left ventricular size and wall thickness. The left ventricular systolic function is normal wi th an estimated ejection fraction in the range of 60-65%. Left ventricular diastolic function parameters a re normal. There is abnormal septal motion consistent with an intraventricular conduction delay. RIGHT VENTRICLE Normal right ventricular size and systolic function. LEFT ATRIUM The left atrial size is normal. RIGHT ATRIUM The right atrial size is normal. ATRIAL SEPTUM Normal atrial septal thickness without atrial level shunting by limited color doppler interrogation. AORTA The aortic root and proximal ascending aorta are normal in size on limited imaging. MITRAL VALVE Mild thickening of the mitral valve leaflets. Zbov-uf-[id number] mitral valve regurgitation. AORTIC VALVE Trileaflet aortic valve. Aortic valve sclerosis is present. Mild aortic valve regurgitation. TRICUSPID VALVE Structurally normal tricuspid valve. There is mild tricuspid valve regurgitation. The estimated pulmonary arterial pressure is 52 mmHg. PULMONARY VALVE Mild pulmonary valve regurgitation. VESSELS The inferior vena cava is normal in size. PERICARDIUM A small left sided pleural effusion is noted. Fawad Kearney MD, FACC (Electronically Signed) Final Date:26 April 2018 12:34
[2018-04-26 13:49] LABS: Hemoglobin A1c 7.8 % (4.3-6.0)
--- NOTE | 2018-04-26 15:52 | ECG ---
Date Performed: 04/25/2018 Time Performed: 16:47:52 PTAGE: 87 years EKG: UNDERLYING RHYTHM APPEARS TO BE ATRIAL FLUTTER OVERALL HEART RATE 87 WITH FREQUENT INTERRUP TION WITH VENTRICULAR ECTOPIC BEATS LEFT BUNDLE BRANCH BLOCK WITH SECONDARY ST-T CHANGE Compared to p revious tracing, the PVCs are new, otherwise no significant change. ABNORMAL ECG PREVIOUS TRACING : 04/25/2018 03.06 DOCTOR: Anton Montgomery Interpretating Date/Time 04/26/2018 15:52:01
--- NOTE | 2018-04-26 15:54 | ECG ---
Date Performed: 04/26/2018 Time Performed: 09:31:30 PTAGE: 87 years EKG: ATRIAL FLUTTER WITH 4:[address]IFIC [address] CHANGE Compared to previous tr acing, the previously seen left bundle branch has resolved and the ventricular ectopic beats have res olved. The left bundle branch block may be a rate-related phenomenon. ABNORMAL RHYTHM ECG PREVIOUS TRACING : 04/25/2018 16.47 DOCTOR: Anton Montgomery Interpretating Date/Time 04/26/2018 15:59:37
[2018-04-27 07:06] LABS: Hematocrit 38.2 % (35.0-46.0); Hemoglobin 12.6 gm/dL (11.6-15.3); Mean Corpuscular Hemoglobin 31.8 pg (27.0-34.0); Mean Corpuscular Volume 96.3 fL (80.0-100.0); Mean Platelet Volume 8.3 fL (7.0-11.0); Platelet Count 219 th/mm3 (150-450); Red Blood Count 3.96 mil/mm3 (4.00-5.30); Red Cell Distribution Width 13.9 % (11.6-17.2)
[2018-04-27] MEDS: Metoprolol Tartrate 25 MG Tablet PO SCH ×3 (09:01→18:21)
[2018-04-27] MEDS: Lisinopril 5 MG Tablet PO SCH (09:01)
[2018-04-27] MEDS: Senna/Docusate Sodium 8.6/50 MG Tablet PO SCH ×2 (09:01→21:40)
[2018-04-27] MEDS: Insulin NovoLOG Aspart Correctional Sugar Inj SQ SCH ×4 (09:06→22:17)
--- NOTE | 2018-04-27 10:44 | P.PN ---
Subjective Interval history: Follow-up non-ST elevation [place] April 26, 2018-patient seen and examined, denies any chest discomfort and currently afebrile. Reports some improvements since admission. April 27, 2018-patient seen and examined states she is stable and wondering when she can be discharged home. No acute event overnight. Physical Exam Vital signs: Vital Signs 04/26/18 12:00 04/26/18 16:00 04/26/18 20:00 Temperature 98.3 F 97.9 F 98.2 F Pulse Rate 62 82 84 Respiratory Rate 18 18 20 Blood Pressure 161/64 H 166/97 H 144/68 H Pulse Oximetry 94 L 94 L 98 04/27/18 00:00 04/27/18 04:00 04/27/18 08:00 Temperature 97.7 F 97.6 F 99.6 F Pulse Rate 61 81 73 Respiratory Rate 18 18 20 Blood Pressure 140/60 142/68 H 173/97 H Pulse Oximetry 94 L 95 92 L Intake & Output 04/26/18 04/27/18 04/27/18 18:59 06:59 18:59 Intake Total 630 / 630 360 / 360 Balance 630 / 630 360 / 360 Weight 75.2 kg Intake: IV 150 / 150 Levaquin 750 mg Premix Inj 150 150 / 150 ML @ 100 mls/hr IV.SIG Q24H MARY Rx#:[id number] Oral 480 / 480 360 / 360 Other: # Voids 3 Date of Last Bowel Movement 04/24/18 # Bowel Movements 1 Narrative: GENERAL: NAD SKIN: Warm and dry. HEAD: Normocephalic. EYES: No scleral icterus. No injection or drainage. NECK: Supple, trachea midline. No JVD or lymphadenopathy. CARDIOVASCULAR: Regular rate and rhythm without murmurs, gallops, or rubs. RESPIRATORY: Breath sounds equal bilaterally. No accessory muscle use. GASTROINTESTINAL: Abdomen soft, non-tender, nondistended. MUSCULOSKELETAL: No cyanosis, or edema. BACK: Nontender without obvious deformity. No CVA tenderness. Results - Labs CBC & Chem 7: 04/27/18 06:53 04/26/18 06:18 Laboratory Results - last 24 hr 04/26/18 04/26/18 04/26/18 06:18 11:37 16:09 WBC RBC Hgb Hct MCV MCH MCHC RDW Plt Count MPV APTT POC Glucose 195 H 237 H Hemoglobin A1c 7.8 H 04/26/18 04/27/18 04/27/18 20:50 06:53 06:55 WBC 7.0 RBC 3.96 L Hgb 12.6 Hct 38.2 MCV 96.3 MCH 31.8 MCHC 33.0 RDW 13.9 Plt Count 219 MPV 8.3 APTT 50.4 H POC Glucose 169 H Hemoglobin A1c 04/27/18 09:00 WBC RBC Hgb Hct MCV MCH MCHC RDW Plt Count MPV APTT POC Glucose 191 H Hemoglobin A1c Microbiology 04/25/18 07:02 Blood - Peripheral Aerobic Blood Culture - Preliminary No growth in 1 day 04/25/18 07:02 Blood - Peripheral Anaerobic Blood Culture - Preliminary No growth in 1 day 04/25/18 06:55 Blood - Peripheral Aerobic Blood Culture - Preliminary No growth in 1 day 04/25/18 06:55 Blood - Peripheral Anaerobic Blood Culture - Preliminary No growth in 1 day Assessment and Plan - Plan 87-year-old female with Non-ST elevation [place] Currently on heparin drip Continue ACS rule out per protocol otherwise Appreciate input from cardiology Continue aspirin, beta-marlee, Nitropaste, statin. Will consider Imdur 30mg daily 2D echo with EF 60-65%, lipid profile wnl She was started on low-dose Lasix per cardiology Diabetes type 2 Hold oral hypoglycemic agent A1c of 7.8 Continue insulin sliding scale with fingerstick blood glucose monitoring Hypertension Currently on beta-marlee 2D echo with 60-65% Abnormal chest x-ray, questionable pulmonary infiltrate Chest x-ray noted and reviewed by me with finding of Mild bibasilar and lateral right upper lung areas of consolidation or atelectasis Continue with empiric antibiotic; switch to PO Levaquin x 2 more days
[2018-04-27] MEDS: Heparin Drip 25,000 UNIT/250 ML BAG IV.CONT PRN (11:20)
[2018-04-27] MEDS ORDERED: Loperamide 2 MG Capsule PO PRN (13:29)
[2018-04-27] MEDS ORDERED: amLODIPine 5 MG Tablet PO PRN (13:37)
--- NOTE | 2018-04-27 13:51 | P.PNCA ---
<Shadeed,December - Last Filed: 04/27/18 14:20> Subjective Interval history: Pleasant 87 year old female. Reports that for the past few days she has felt like she was coming down with the flu. Friday night she woke up and felt like she could not breath, was unable to take a deep breath. Had PND and orthopnea, had to sit up on side of bed in order to catch breath. She denies ever having any chest pain. Troponin elevated. EKG showed new onset Atrial flutter. Over the weekend she has been having tachycardia. She reports her breathing has improved significantly since she received Lasix. She is now able to lie flat and has no SOB. She denies any cardiac history. Does have DM and was on lisinopril at home for BP management. Physical Exam Vital signs: Vital Signs 04/26/18 16:00 04/26/18 20:00 04/27/18 00:00 Temperature 97.9 F 98.2 F 97.7 F Pulse Rate 82 84 61 Respiratory Rate 18 20 18 Blood Pressure 166/97 H 144/68 H 140/60 Pulse Oximetry 94 L 98 94 L 04/27/18 04:00 04/27/18 08:00 Temperature 97.6 F 99.6 F Pulse Rate 81 73 Respiratory Rate 18 20 Blood Pressure 142/68 H 173/97 H Pulse Oximetry 95 92 L Intake & Output 04/26/18 04/27/18 04/27/18 18:59 06:59 18:59 Intake Total 630 / 630 360 / 360 250 / 250 Balance 630 / 630 360 / 360 250 / 250 Weight 75.2 kg Intake: IV 150 / 150 250 / 250 Heparin/D5W 25,000 U/250 mL 25, 250 / 250 000 unit In 250 ml @ Per Protocol IV.CONT TITRATE PRN Rx #:[id number] Levaquin 750 mg Premix Inj 150 150 / 150 ML @ 100 mls/hr IV.SIG Q24H MARY Rx#:[id number] Oral 480 / 480 360 / 360 Other: # Voids 3 Date of Last Bowel Movement 04/24/18 # Bowel Movements 1 - Constitutional no acute distress - Routine HEENT Exam Head: Present: atraumatic Eye: Present: normal accommodation ENT: Present: mucous membranes moist - Routine Neck Exam Present: supple - Routine Respiratory Exam Present: CTA bilaterally - Routine Cardiovascular Exam Present: tachycardia - Routine Extremities Exam Comments: no edema - Routine Skin Exam Present: intact - Routine Neurological Exam Present: alert, oriented X3 - Detailed Neurological Exam: Coma Scale Eye Opening: Spontaneous Verbal Response: Oriented Motor Response: Obey commands Yanick Coma Scale Total: 15 - Routine Psychiatric Exam Present: normal affect Assessment and Plan - Plan Non-ST elevation [place] Atrial flutter/Tachycardia Hypertension -Troponin 0.17, 0.13. Pt denies any chest pain. SOB has resolved. Will DC heparin drip and SL nitro. Pt is on ASA, Lisinopril, Metoprolol and Statin. -New onset atrial flutter. Tachycardia. Will increase metoprolol to 50mg TID, and start on Xarelto 15mg daily based on creatinine clearance of 25. -Metoprolol and lisinopril increased for BP and HR control. The patient was seen and evaluated by Dr. Tineo who completed face to face encounter and physical exam and participated in care and decision making. Discussed Condition With: Nurse <Tess Tineo - Last Filed: 04/28/18 10:08> Physical Exam Vital signs: Vital Signs 04/27/18 12:00 04/27/18 16:00 04/27/18 20:00 Temperature 99.7 F H 97.9 F 97.9 F Pulse Rate 95 H 80 62 Respiratory Rate 20 20 18 Blood Pressure 170/89 H 138/67 155/72 H Pulse Oximetry 95 93 L 94 L 04/27/18 20:20 04/28/18 00:00 04/28/18 04:00 Temperature 97.8 F 97.4 F L Pulse Rate 59 L 76 85 Respiratory Rate 18 16 Blood Pressure 159/83 H 165/84 H Pulse Oximetry 94 L 94 L 04/28/18 08:00 Temperature 97.7 F Pulse Rate 82 Respiratory Rate 20 Blood Pressure 174/78 H Pulse Oximetry 92 L Intake & Output 04/27/18 04/28/18 04/28/18 18:59 06:59 18:59 Intake Total 920 / 920 240 / 240 Balance 920 / 920 240 / 240 Weight 72.3 kg Intake: IV 440 / 440 Heparin/D5W 25,000 U/250 mL 25, 290 / 290 000 unit In 250 ml @ Per Protocol IV.CONT TITRATE PRN Rx #:[id number] Levaquin 750 mg Premix Inj 150 150 / 150 ML @ 100 mls/hr IV.SIG Q24H [facility] Rx#:[id number] Oral 480 / 480 240 / 240 Other: # Voids 4 2 Date of Last Bowel Movement 04/27/18 04/27/18 # Bowel Movements 1 1 Assessment and Plan - Plan The exam, history, and the medical decision-making described in the above note were completed with the assistance of the mid-level provider. I reviewed and agree with the findings presented. I attest that I had a [id number] encounter with the patient on the same day, and personally performed and documented my assessment and findings in the medical record. Overall doing well in aflutter will rate control and send home.
[2018-04-27] MEDS: Rivaroxaban 15 MG Tablet PO SCH (16:12)
[2018-04-27] MEDS: Lisinopril 10 MG Tablet PO SCH (21:40)
[2018-04-28 07:16] LABS: Hematocrit 38.9 % (35.0-46.0); Hemoglobin 13.5 gm/dL (11.6-15.3); Mean Corpuscular HGB Conc 34.8 % (32.0-36.0); Mean Corpuscular Hemoglobin 32.7 pg (27.0-34.0); Mean Corpuscular Volume 93.9 fL (80.0-100.0); Mean Platelet Volume 8.6 fL (7.0-11.0); Platelet Count 255 th/mm3 (150-450); Red Blood Count 4.14 mil/mm3 (4.00-5.30); White Blood Count 8.3 th/mm3 (4.0-11.0)
[2018-04-28 07:42] LABS: Calcium 9.2 mg/dL (8.5-10.1); Carbon Dioxide 24.1 meq/L (21.0-32.0); Potassium 3.2 meq/L (3.5-5.1)
[2018-04-28] MEDS: levoFLOXacin 500 MG Tablet PO SCH (09:02)
[2018-04-28] MEDS: Senna/Docusate Sodium 8.6/50 MG Tablet PO SCH ×2 (09:02→21:52)
[2018-04-28] MEDS: Metoprolol Tartrate 25 MG Tablet PO SCH ×3 (09:02→17:14)
[2018-04-28] MEDS: Lisinopril 10 MG Tablet PO SCH ×2 (09:03→21:52)
[2018-04-28] MEDS: Rivaroxaban 15 MG Tablet PO SCH (09:03)
[2018-04-28] MEDS: Insulin NovoLOG Aspart Correctional Sugar Inj SQ SCH ×4 (09:04→21:52)
[2018-04-28] MEDS ORDERED: amLODIPine 5 MG Tablet PO SCH (11:00)
[2018-04-28] MEDS ORDERED: Potassium Chloride 25 MEQ Effervescent Tablet PO ONE (11:10)
--- NOTE | 2018-04-28 11:15 | P.PN ---
Subjective Interval history: Denies any chest pain, shortness of breath, no palpitations. Off heparin drip. Telemetry reviewed, sinus rhythm. No acute changes overnight. Denies any cough, no sputum production. Afebrile Physical Exam Vital signs: Vital Signs 04/27/18 12:00 04/27/18 16:00 04/27/18 20:00 Temperature 99.7 F H 97.9 F 97.9 F Pulse Rate 95 H 80 62 Respiratory Rate 20 20 18 Blood Pressure 170/89 H 138/67 155/72 H Pulse Oximetry 95 93 L 94 L 04/27/18 20:20 04/28/18 00:00 04/28/18 04:00 Temperature 97.8 F 97.4 F L Pulse Rate 59 L 76 85 Respiratory Rate 18 16 Blood Pressure 159/83 H 165/84 H Pulse Oximetry 94 L 94 L 04/28/18 08:00 04/28/18 10:27 Temperature 97.7 F Pulse Rate 82 75 Respiratory Rate 20 Blood Pressure 174/78 H Pulse Oximetry 92 L Intake & Output 04/27/18 04/28/18 04/28/18 18:59 06:59 18:59 Intake Total 920 / 920 240 / 240 Balance 920 / 920 240 / 240 Weight 72.3 kg Intake: IV 440 / 440 Heparin/D5W 25,000 U/250 mL 25, 290 / 290 000 unit In 250 ml @ Per Protocol IV.CONT TITRATE PRN Rx #:[id number] Levaquin 750 mg Premix Inj 150 150 / 150 ML @ 100 mls/hr IV.SIG Q24H [facility] Rx#:[id number] Oral 480 / 480 240 / 240 Other: # Voids 4 2 Date of Last Bowel Movement 04/27/18 04/27/18 # Bowel Movements 1 1 Narrative: GENERAL: Well-nourished, well-developed patient in no apparent distress. SKIN: Warm and dry. HEAD: Atraumatic. Normocephalic. EYES: Pupils equal and round. No scleral icterus. No injection or drainage. ENT: No nasal bleeding or discharge. Mucous membranes pink and moist. NECK: Trachea midline. No JVD. CARDIOVASCULAR: Regular rate and rhythm. RESPIRATORY: No accessory muscle use. Clear to auscultation. Breath sounds equal bilaterally. GASTROINTESTINAL: Abdomen soft, non-tender, nondistended. Hepatic and splenic margins not palpable. MUSCULOSKELETAL: Extremities without clubbing, cyanosis, or edema. No obvious deformities. NEUROLOGICAL: Awake and alert x 3. No obvious cranial nerve deficits. Motor grossly within normal limits. Five out of 5 muscle strength in the arms and legs. Normal speech. PSYCHIATRIC: Appropriate mood and affect; insight and judgment normal. Results - Labs CBC & Chem 7: 04/28/18 05:38 04/28/18 05:38 Laboratory Results - last 24 hr 04/27/18 04/27/18 04/27/18 12:43 16:36 21:41 WBC RBC Hgb Hct MCV MCH MCHC RDW Plt Count MPV APTT Sodium Potassium Chloride Carbon Dioxide Anion Gap BUN Creatinine Estimated GFR POC Glucose 170 H 162 H 198 H Random Glucose Calcium 04/28/18 04/28/18 04/28/18 05:38 05:38 05:38 WBC 8.3 RBC 4.14 Hgb 13.5 Hct 38.9 MCV 93.9 MCH 32.7 MCHC 34.8 RDW 14.0 Plt Count 255 MPV 8.6 APTT 29.6 D Sodium 143 Potassium 3.2 L Chloride 106 Carbon Dioxide 24.1 Anion Gap 13 BUN 16 Creatinine 1.03 H Estimated GFR 51 L POC Glucose Random Glucose 166 H Calcium 9.2 D 04/28/18 08:20 WBC RBC Hgb Hct MCV MCH MCHC RDW Plt Count MPV APTT Sodium Potassium Chloride Carbon Dioxide Anion Gap BUN Creatinine Estimated GFR POC Glucose 165 H Random Glucose Calcium Microbiology 04/25/18 07:02 Blood - Peripheral Aerobic Blood Culture - Preliminary No growth in 2 days 04/25/18 07:02 Blood - Peripheral Anaerobic Blood Culture - Preliminary No growth in 2 days 04/25/18 06:55 Blood - Peripheral Aerobic Blood Culture - Preliminary No growth in 2 days 04/25/18 06:55 Blood - Peripheral Anaerobic Blood Culture - Preliminary No growth in 2 days Assessment and Plan - Assessment (1) Acute non-ST elevation myocardial infarction (NSTEMI) Code(s): I21.4 - Non-ST elevation (NSTEMI) myocardial infarction Status: Acute (2) Chest pain Code(s): R07.9 - Chest pain, unspecified Status: Acute (3) Atrial flutter Code(s): I48.92 - Unspecified atrial flutter Status: Acute (4) Pneumonia Code(s): J18.9 - Pneumonia, unspecified organism Status: Acute (5) Accelerated hypertension Code(s): I10 - Essential (primary) hypertension Status: Acute (6) CHF (congestive heart failure) Code(s): I50.9 - Heart failure, unspecified Status: Acute - Plan 87-year-old female presented with c/o cp, found with uncontrolled BP, elevated trop. CXR concerning for PNA vs CHF Non-ST elevation [place] appreciate card input Continue aspirin, beta-marlee, Nitropaste, statin. 2D echo with EF 60-65%, lipid profile wnl Mild CHF Received Lasix Echo done, EF 60-65 Continue Lasix 20 mg PO daily, monitor electrolytes Aflutter, new onset BB increased, Lopressor 50 mg PO TID Off Heparin gtt, started on Xarelto at 15 mg po daily Diabetes type 2 Hold oral hypoglycemic agent A1c of 7.8 Continue insulin sliding scale with fingerstick blood glucose monitoring Hypertension Currently on beta-marlee, inc. per card. Continue GUILLERMINA Will change Norvasc to daily, was PRN 2D echo with 60-65% Abnormal chest x-ray, questionable pulmonary infiltrate Chest x-ray noted Mild bibasilar and lateral right upper lung areas of consolidation or atelectasis Continue PO Levaquin x 2 more days Replace K Continue Xarelto for DVT prophylaxis We will wait for cardiology for further recommendations, possible discharge later today or tomorrow (2) Chest pain Qualifiers: Chest pain type: chest pain due to myocardial ischemia Ischemic chest pain type: unspecified angina pectoris type Qualified Code(s): I25.9 - Chronic ischemic heart disease, unspecified (3) Atrial flutter Qualifiers: Atrial flutter type: unspecified Qualified Code(s): I48.92 - Unspecified atrial flutter (4) Pneumonia Qualifiers: Pneumonia type: due to unspecified organism Laterality: right Lung location : upper lobe of lung Qualified Code(s): J18.1 - Lobar pneumonia, unspecified organism (6) CHF (congestive heart failure) Qualifiers: Heart failure type: unspecified Heart failure chronicity: unspecified Qualified Code(s): I50.9 - Heart failure, unspecified
--- NOTE | 2018-04-28 11:19 | P.DCO ---
- Physical Therapy Order: Evaluate and treat - Home Health Nursing Order: Medical education, Signs/symptoms of disease process, CHF education, Medication education-adverse effect - Case Management Consult Yes - Certification I have seen patient Mirlande Estrada on 04/28/18. My clinical findings support the need for the requested home health care services because: advance age, new onset CHF and afflutter, sob with activity, fatigues easily Patient has SOB I certify that my clinical findings support that this patient is homebound because: Need for psychosocial assistance, Unable to use public transportation
[2018-04-28] MEDS: dilTIAZem CD 180 MG Capsule PO SCH (11:56)
[2018-04-28] MEDS: Furosemide 20 MG Tablet PO SCH (11:57)
--- NOTE | 2018-04-28 13:09 | P.PNCA ---
<Shadeed,December - Last Filed: 04/28/18 13:02> Subjective Interval history: Patient reports feeling better. She denies any chest pain or SOB. She has been ambulating to bathroom without any difficulty. BP continues to be elevated. Also having episodes of atrial flutter with rapid HR. Physical Exam Vital signs: Vital Signs 04/27/18 16:00 04/27/18 20:00 04/27/18 20:20 Temperature 97.9 F 97.9 F Pulse Rate 80 62 59 L Respiratory Rate 20 18 Blood Pressure 138/67 155/72 H Pulse Oximetry 93 L 94 L 04/28/18 00:00 04/28/18 04:00 04/28/18 08:00 Temperature 97.8 F 97.4 F L 97.7 F Pulse Rate 76 85 82 Respiratory Rate 18 16 20 Blood Pressure 159/83 H 165/84 H 174/78 H Pulse Oximetry 94 L 94 L 92 L 04/28/18 10:27 Temperature Pulse Rate 75 Respiratory Rate Blood Pressure Pulse Oximetry Intake & Output 04/27/18 04/28/18 04/28/18 18:59 06:59 18:59 Intake Total 920 / 920 240 / 240 Balance 920 / 920 240 / 240 Weight 72.3 kg Intake: IV 440 / 440 Heparin/D5W 25,000 U/250 mL 25, 290 / 290 000 unit In 250 ml @ Per Protocol IV.CONT TITRATE PRN Rx #:[id number] Levaquin 750 mg Premix Inj 150 150 / 150 ML @ 100 mls/hr IV.SIG Q24H [facility] Rx#:[id number] Oral 480 / 480 240 / 240 Other: # Voids 4 2 Date of Last Bowel Movement 04/27/18 04/27/18 # Bowel Movements 1 1 - Constitutional no acute distress - Routine HEENT Exam Head: Present: atraumatic Eye: Present: PERRL, normal accommodation ENT: Present: mucous membranes moist - Routine Neck Exam Present: supple - Routine Respiratory Exam Present: diminished air movement - Routine Cardiovascular Exam Present: tachycardia - Routine Abdominal Exam Present: soft - Routine Skin Exam Present: intact - Routine Neurological Exam Present: alert, oriented X3 Assessment and Plan - Plan Non-ST elevation [place] Atrial flutter/Tachycardia Hypertension -Troponin 0.17, 0.13. Pt denies any chest pain. SOB has resolved. Pt is on ASA, Lisinopril, Metoprolol and Statin. Will plan to check stress test outpatient. -New onset atrial flutter. Tachycardia. Will rate control. Metoprolol was increased and she was started on Xarelto. HR continues to be elevated. Will add Cardizem 180mg. Will discharge home on Metoprolol 50mg TID, Xarelto 15mg Qday, and Cardizem 180mg daily. Will plan to see in office in 2 weeks for hospital follow up and schedule stress test. The patient was seen and evaluated by Dr. Tineo who completed face to face encounter and physical exam and participated in care and decision making. . <Tess Tineo - Last Filed: 04/28/18 14:17> Physical Exam Vital signs: Vital Signs 04/27/18 16:00 04/27/18 20:00 04/27/18 20:20 Temperature 97.9 F 97.9 F Pulse Rate 80 62 59 L Respiratory Rate 20 18 Blood Pressure 138/67 155/72 H Pulse Oximetry 93 L 94 L 04/28/18 00:00 04/28/18 04:00 04/28/18 08:00 Temperature 97.8 F 97.4 F L 97.7 F Pulse Rate 76 85 82 Respiratory Rate 18 16 20 Blood Pressure 159/83 H 165/84 H 174/78 H Pulse Oximetry 94 L 94 L 92 L 04/28/18 10:27 04/28/18 12:00 Temperature Pulse Rate 75 83 Respiratory Rate Blood Pressure Pulse Oximetry Intake & Output 04/27/18 04/28/18 04/28/18 18:59 06:59 18:59 Intake Total 920 / 920 240 / 240 Balance 920 / 920 240 / 240 Weight 72.3 kg Intake: IV 440 / 440 Heparin/D5W 25,000 U/250 mL 25, 290 / 290 000 unit In 250 ml @ Per Protocol IV.CONT TITRATE PRN Rx #:[id number] Levaquin 750 mg Premix Inj 150 150 / 150 ML @ 100 mls/hr IV.SIG Q24H [facility] Rx#:[id number] Oral 480 / 480 240 / 240 Other: # Voids 4 2 Date of Last Bowel Movement 04/27/18 04/27/18 # Bowel Movements 1 1 Assessment and Plan - Plan The exam, history, and the medical decision-making described in the above note were completed with the assistance of the mid-level provider. I reviewed and agree with the findings presented. Pt has aflutter with rvr will add calcium channel marlee and d/c if stable.
[2018-04-29] MEDS: Furosemide 20 MG Tablet PO SCH (08:37)
[2018-04-29] MEDS: dilTIAZem CD 180 MG Capsule PO SCH (08:37)
[2018-04-29] MEDS: Lisinopril 10 MG Tablet PO SCH (08:38)
[2018-04-29] MEDS: Insulin NovoLOG Aspart Correctional Sugar Inj SQ SCH (08:38)
[2018-04-29] MEDS: levoFLOXacin 500 MG Tablet PO SCH (08:38)
[2018-04-29] MEDS: Metoprolol Tartrate 25 MG Tablet PO SCH (08:38)
[2018-04-29] MEDS: Rivaroxaban 15 MG Tablet PO SCH (08:38)
[2018-04-29] MEDS: Senna/Docusate Sodium 8.6/50 MG Tablet PO SCH (08:39)
--- NOTE | 2018-04-29 08:50 | P.PN ---
Subjective Interval history: Denies any chest pain, minimal shortness of breath occasionally, improve, diuresing well. No palpitations, no chest pain. No leg edema. Telemetry sinus rhythm, heart rate 88 better control. Blood pressure better overnight 120s 130s, but 170s overnight Physical Exam Vital signs: Vital Signs 04/28/18 10:27 04/28/18 12:00 04/28/18 16:00 Temperature 98.3 F 97.7 F Pulse Rate 75 82 73 Respiratory Rate 20 20 Blood Pressure 167/93 H 163/80 H Pulse Oximetry 95 96 04/28/18 20:00 04/29/18 00:00 04/29/18 04:00 Temperature 98 F 98.0 F 97.7 F Pulse Rate 52 L 66 81 Respiratory Rate 20 18 18 Blood Pressure 133/67 127/69 175/76 H Pulse Oximetry 96 93 L 94 L Intake & Output 04/28/18 04/29/18 04/29/18 18:59 06:59 18:59 Intake Total 720 / 720 910 / 910 Balance 720 / 720 910 / 910 Weight 72 kg Intake: Oral 720 / 720 910 / 910 Other: # Voids 5 5 Date of Last Bowel Movement 04/27/18 04/28/18 # Bowel Movements 1 1 Narrative: GENERAL: Well-nourished, well-developed patient in no apparent distress. SKIN: Warm and dry. HEAD: Atraumatic. Normocephalic. EYES: Pupils equal and round. No scleral icterus. No injection or drainage. ENT: No nasal bleeding or discharge. Mucous membranes pink and moist. NECK: Trachea midline. No JVD. CARDIOVASCULAR: Regular rate and rhythm. RESPIRATORY: No accessory muscle use. Clear to auscultation. Breath sounds equal bilaterally. GASTROINTESTINAL: Abdomen soft, non-tender, nondistended. Hepatic and splenic margins not palpable. MUSCULOSKELETAL: Extremities without clubbing, cyanosis, or edema. No obvious deformities. NEUROLOGICAL: Awake and alert x 3. No obvious cranial nerve deficits. Motor grossly within normal limits. Five out of 5 muscle strength in the arms and legs. Normal speech. PSYCHIATRIC: Appropriate mood and affect; insight and judgment normal. Results - Labs CBC & Chem 7: 04/28/18 05:38 04/28/18 05:38 Laboratory Results - last 24 hr 04/28/18 04/28/18 04/28/18 11:59 16:31 20:18 APTT POC Glucose 206 H 210 H 273 H 04/29/18 04/29/18 06:16 07:42 APTT 30.1 POC Glucose 197 H Microbiology 04/25/18 07:02 Blood - Peripheral Aerobic Blood Culture - Preliminary No growth in 3 days 04/25/18 07:02 Blood - Peripheral Anaerobic Blood Culture - Preliminary No growth in 3 days 04/25/18 06:55 Blood - Peripheral Aerobic Blood Culture - Preliminary No growth in 3 days 04/25/18 06:55 Blood - Peripheral Anaerobic Blood Culture - Preliminary No growth in 3 days Assessment and Plan - Assessment (1) Acute non-ST elevation myocardial infarction (NSTEMI) Code(s): I21.4 - Non-ST elevation (NSTEMI) myocardial infarction Status: Acute (2) Chest pain Code(s): R07.9 - Chest pain, unspecified Status: Acute (3) Atrial flutter Code(s): I48.92 - Unspecified atrial flutter Status: Acute (4) Pneumonia Code(s): J18.9 - Pneumonia, unspecified organism Status: Acute (5) Accelerated hypertension Code(s): I10 - Essential (primary) hypertension Status: Acute (6) CHF (congestive heart failure) Code(s): I50.9 - Heart failure, unspecified Status: Acute - Plan 87-year-old female presented with c/o cp, found with uncontrolled BP, elevated trop. CXR concerning for PNA vs CHF Non-ST elevation [place] appreciate card input Continue aspirin, beta-marlee, Nitropaste, statin. 2D echo with EF 60-65%, lipid profile wnl Mild CHF Received Lasix Echo done, EF 60-65 Continue Lasix 20 mg PO daily, monitor electrolytes Aflutter, new onset Sinus rhythm now, heart rate control. Continue with Lopressor 50 mg PO TID Xarelto at 15 mg po daily Continue diltiazem Diabetes type 2 Hold oral hypoglycemic agent A1c of 7.8 Continue insulin sliding scale with fingerstick blood glucose monitoring Hypertension, blood pressure has been elevated. Currently on beta-marlee, inc. per card. Continue GUILLERMINA Continue diltiazem, hold Norvasc. 2D echo with 60-65% Abnormal chest x-ray, questionable pulmonary infiltrate Chest x-ray noted Mild bibasilar and lateral right upper lung areas of consolidation or atelectasis Okay to stop Levaquin today. Afebrile, no leukocytosis. Continue Xarelto for DVT prophylaxis Case management consultation for discharge planning, arrange home health care We will follow-up on blood pressure, if repeat BP less than 150, we will likely discharged this afternoon. We will need to follow-up with Dr. Tineo in 2 weeks Activity as tolerated (2) Chest pain Qualifiers: Chest pain type: chest pain due to myocardial ischemia Ischemic chest pain type: unspecified angina pectoris type Qualified Code(s): I25.9 - Chronic ischemic heart disease, unspecified (3) Atrial flutter Qualifiers: Atrial flutter type: unspecified Qualified Code(s): I48.92 - Unspecified atrial flutter (4) Pneumonia Qualifiers: Pneumonia type: due to unspecified organism Laterality: right Lung location : upper lobe of lung Qualified Code(s): J18.1 - Lobar pneumonia, unspecified organism (6) CHF (congestive heart failure) Qualifiers: Heart failure type: unspecified Heart failure chronicity: unspecified Qualified Code(s): I50.9 - Heart failure, unspecified
--- NOTE | 2018-04-29 18:11 | P.DS ---
Date of admission: 04/25/18 06:22 Primary care physician: Dr. Filipe Sevilla Attending physician on discharge: Colton Chavira Anticipated date of discharge: 04/29/18 Brief History from admission: 87-year-old female for past medical history of hypertension and a previous negative nuclear stress test October 17, 2006 was brought to the ED by EMS early this morning for evaluation of ongoing chest discomfort and pain associated with shortness of breath without any radiation described as crushing , substernal without any diaphoresis. Initial cardiac enzyme 0.06, with elevated BP on arrival. Patient states, the pain woke her up around 1:30 AM this morning. It was rated over 16 in intensity without any relieving factor. DS: Diagnosis - Discharge Diagnosis (1) Acute non-ST elevation myocardial infarction (NSTEMI) Status: Acute (2) Chest pain Status: Acute (3) Atrial flutter Status: Acute (4) Pneumonia Status: Acute (5) Accelerated hypertension Status: Acute (6) CHF (congestive heart failure) Status: Acute DS: Medications - Discharge Medications Prescriptions: diltiazem HCl [Cardizem CD] 180 mg PO DAILY 30 Days #30 cap metoprolol tartrate 50 mg PO TID 30 Days #90 tab pravastatin 40 mg PO DAILY 30 Days #30 tab rivaroxaban [Xarelto] 15 mg PO DAILY 30 Days #30 tab DS: Summary Hospital Course: 87-year-old female presented with c/o cp, found with uncontrolled BP, elevated trop. CXR concerning for PNA vs CHF. Tele revealed Aflutter, new onset Pt. admitted, during course of hospitalization the following took place: Non-ST elevation [place] serial trop done, were elevated. Cardiology believed pt. with NSTEMI sec. to elevated HR appreciated card input started on aspirin, beta-marlee, Nitropaste, statin. ordered 2D echo- EF 60-65% Ordered lipid profile, was normal. Found with Mild CHF Received Lasix, diuresed well. Echo done, EF 60-65 Noted in Aflutter, new onset, converted to SR. HR elevated at times during admission Started on Lopressor 50 mg PO TID, Xarelto at 15 mg po daily diltiazem added as HR was elevated Diabetes type 2 Held oral hypoglycemic agent A1c of 7.8 Continued insulin sliding scale with fingerstick blood glucose monitoring instructed to continue oral hypoglycemics at home. Emphasized diet/portion control and better glycemic management Hypertension, blood pressure was elevated. Continue on BB, Lisinopril, Norvasc PRN, Diltiazem BP improved with medication Abnormal chest x-ray, questionable pulmonary infiltrate Chest x-ray noted Mild bibasilar and lateral right upper lung areas of consolidation or atelectasis started on Levaquin, tolerated well. Remained without fever, no cough, no sputum production Continued on Xarelto for DVT prophylaxis Case management consultation for discharge planning, arranged home health care for disease management and medication review Went over meds in detail with pt and family, pt. did not provide an accurate list until last day of admission. Instructed what to continue and not continue. She was instructed to follow up with Dr. Tineo in 2 weeks and PCP in 1 week - Time Spent with Patient Total time spent providing and/or coordinating discharge services: Greater than 30 minutes Exam Vital signs: Vital Signs 04/28/18 20:00 04/29/18 00:00 04/29/18 04:00 Temperature 98 F 98.0 F 97.7 F Pulse Rate 52 L 66 81 Respiratory Rate 20 18 18 Blood Pressure 133/67 127/69 175/76 H Pulse Oximetry 96 93 L 94 L 04/29/18 08:00 04/29/18 10:10 Temperature 98.0 F Pulse Rate 86 65 Respiratory Rate 20 Blood Pressure 152/71 H Pulse Oximetry 93 L Intake & Output 04/28/18 04/29/18 04/29/18 18:59 06:59 18:59 Intake Total 720 / 720 910 / 910 Balance 720 / 720 910 / 910 Weight 72 kg Intake: Oral 720 / 720 910 / 910 Other: # Voids 5 5 Date of Last Bowel Movement 04/27/18 04/28/18 04/28/18 # Bowel Movements 1 1 Results Procedures completed during hospitalization: none Labs on day of discharge: Labs from last 24 hours 04/29/18 04/29/18 04/28/18 07:42 06:16 20:18 APTT 30.1 POC Glucose 197 H 273 H Preliminary micro results at discharge 04/25/18 07:02 Aerobic Blood Culture - Preliminary Blood - Peripheral No growth in 4 days Anaerobic Blood Culture - Preliminary No growth in 4 days 04/25/18 06:55 Aerobic Blood Culture - Preliminary Blood - Peripheral No growth in 4 days Anaerobic Blood Culture - Preliminary No growth in 4 days - Impressions ITS Impressions Chest X-Ray 04/25/18 03:17 CONCLUSION: Mild bibasilar and lateral right upper lung areas of consolidation or atelectasis. Discharge Plan - Discharge Disposition Patient Disposition: W/Home Health Service - Discharge Condition Condition: Good - Discharge Order Discharge Orders: Discharge Order (Routine); Ordered 04/29/18 Ordered By: Yessenia Kennedy Cardiology Clear for Discharge (Routine); Ordered 04/28/18 Ordered By: Nieves Alcon - Discharge Details Anticipated Discharge Date: 04/29/18 Discharge Comment: PLEASE PROVIDE BP FOR THIS MORNING BEFORE DC - Physicians Team Primary Care Provider: UNKNOWN, Attending Provider: Colton Chavira Other Providers: Damion Myers DO
== END 2018-04-29 10:44 | disposition home or self-care (01) ==
LOC: NEPC 02:57 → NEDA 06:22 → NEDH 11:19 → N04 14:22
PROVIDERS: ADMIT Internal Medicine; ATTEND Internal Medicine